=== PATIENT | female | born 1935 | race Caucasian/White ===

== ENCOUNTER 2023-11-01 13:30 | Emergency (ER) | payer MEDICARE ==
[~2023-11-01] VITALS: Ht 154.9 cm; Wt 73.5 kg
== END 2023-11-01 14:48 | disposition home or self-care (01) ==
LOC: ER 13:30
DX: S62.102D Fracture of unspecified carpal bone, left wrist, subsequent encounter for fracture with routine healing (principal)
CPT/HCPCS: 99282

== ENCOUNTER 2023-12-27 10:21 | Observation (INO) | payer MEDICARE, BC ==
[~2023-12-27] VITALS: Ht 170.2 cm; Wt 63.5 kg
[2023-12-27 11:13] LABS: BASOPHILS ABSOLUTE AUTO 0.05 K/mm3 (0.00-0.23); BASOPHILS PERCENT AUTO 0 % (0-2); EOSINOPHILS ABSOLUTE AUTO 0.19 K/mm3 (0.00-0.68); EOSINOPHILS PERCENT AUTO 2 % (0-6); Hemoglobin 12.6 g/dL (11.5-16.0); IMMATURE GRAN ABSOLUTE AUTO 0.09 K/mm3 (0.00-0.10); IMMATURE GRAN PERCENT AUTO 1 % (0-1); LYMPHOCYTES ABSOLUTE AUTO 2.68 K/mm3 (0.84-5.20); LYMPHOCYTES PERCENT AUTO 21 % (21-46); MONOCYTES PERCENT AUTO 7 % (4-13); Mean Corpuscular HGB Conc 32.3 g/dL (31.5-36.5); Mean Corpuscular Volume 93 fL (80-100); Mean Platelet Volume 9.4 fL (9.1-12.4); NEUTROPHILS ABSOLUTE AUTO 8.99 K/mm3 (1.96-9.15); NEUTROPHILS PERCENT AUTO 70 % (41-73); Platelet Count 300 K/mm3 (150-400); RDW Coefficient Variation 13.2 % (11.7-14.2); RDW Standard Deviation 44.6 fL (35.1-46.3)
[2023-12-27] MEDS ORDERED: Aspirin 325 MG Tab PO ONE (11:20)
[2023-12-27] MEDS ORDERED: NS 1,000 ML IV SCH (11:20)
[2023-12-27 14:09] LABS: Albumin, Blood 3.4 g/dL (3.4-5.0); Bilirubin, Total 0.4 mg/dL (0.1-1.0); Bun/Creatinine Ratio 21.5 (12.0-20.0); Calcium, Blood 10.3 mg/dL (8.5-10.1); Creatinine, Blood 1.21 mg/dL (0.40-1.00); Globulin, Blood 3.5 g/dL (2.2-4.0); Potassium, Blood 4.1 mmol/L (3.5-5.5); Total Protein, Blood 6.9 g/dL (6.4-8.2)
[2023-12-27] MEDS ORDERED: FLU VACC TS2024-25(6MOS UP)/PF 45 MCG/0.5 ML SYRINGE IM SCH (15:00)
[2023-12-27 16:05] LABS: CHOL/HDL RATIO 4.8; Cholesterol 183 mg/dL (50-200); HDL Cholesterol 38 mg/dL (>39); LDL/HDL RATIO Unable to Calculate; Low Density Lipoprotein Chol Unable to Calculate mg/dL (0-110); Triglycerides 506 mg/dL (30-160); Very Low Density Lipoprot Chol Unable to Calculate mg/dL (6-32)
[2023-12-27] MEDS ORDERED: Insulin Regular 100 UNIT/ML 10ML Vial SC SCH (16:30)
[2023-12-27] MEDS ORDERED: LEVSOD100 PO (17:49)
[2023-12-27] MEDS ORDERED: TRELEGY ELLIPT1 EAC1 INH (17:50)
[2023-12-27 18:47] VITALS: BP 170/55
[2023-12-27 19:52] VITALS: BP 164/59
--- NOTE | 2023-12-27 19:57 | NUR ---
ADMIT NOTE- PT ADMITTED THROUGH THE ED, ARRIVED AT 1838. PT ARRIVED WITH HER SON AND DAUGHTER IN [place]. PT WAS CHANGED INTO DRY ATTENDS, HER HOME CLOTHES WERE SOILED D/T A LEAKY PUREWICK CATH. PT WAS INSTRUCTED ON THE USE OF THE CALL LIGHT, TELE WAS REQUESTED, PLACED AND VERIFIED (SINUS AT 83). SPOKE TO DR SALDIVAR HER NOTE STATES THE PT IS DNR AND THE CHART SAYS FULL CODE. RECIEVED VERBAL ORDER TO CHANGE THE PT TO DNR. PT STATED DNR IS HER WISH. DNR VERIFIED WITH RN MAY AND DNR BAND PLACED. VITALS AND WEIGHT WERE CHECKED. PER THE PT FAMILY SHE USES 2.5L OF O2 AT NIGHT. PT IN BED, CALL LIGHT IN REACH NO S&S OF DISTRESS NOTED. NIGHT RN AWARE ADMIT ASSESSMENT NOT ABLE TO BE COMPLETED.
--- NOTE | 2023-12-28 04:39 | NUR ---
SHIFT SUMMARY PT ARRIVED DURING SHIFT CHANGE, QUALITY OFFICERDENISE CHARLTON COMPLETED THE ADMISSION ASSESSMENT. SKIN CHECK WITH THIS WORKFORCE MANAGEMENT COORDINATOR. PT HAS RIGHT LE WEAKNESS. ASSISTED TO BEDPAN D/T NON WEIGHT BEARING LE PER PT REPORT. PT IS A&O X4, ABLE TO MAKE HER NEEDS KNOWN. URGENCY AT TIMES TO VOID, UNABLE TO: BLADDER SCAN 500MLS, PT VOIDED 600MLS SOON AFTER. PT DENIES PAIN, SOB, N/V. PT IS ON 2.5 L (BASELINE) O2 VIA NASAL CANNULA, O2>95%. NO ACUTE EVENTS DURING THIS SHIFT. BED AT THE LOWEST POSITION, CALL LIGHT WITHIN REACH.
--- NOTE | 2023-12-28 04:59 | NUR ---
NEW T-ORDER FROM FOR FENTANYL IV 25-50MCG Q4 PRN FOR SEVERE PAIN. ENTERED TO [facility], SEE EMAR. NO ADDITIONAL NEW ORDERS AT THIS TIME.
[2023-12-28] MEDS ORDERED: FentaNYL Citrate 50 MCG/ML 2 ML Injection IV PRN (05:00)
[2023-12-28 05:02] LABS: BASOPHILS ABSOLUTE AUTO 0.05 K/mm3 (0.00-0.23); BASOPHILS PERCENT AUTO 0 % (0-2); EOSINOPHILS ABSOLUTE AUTO 0.35 K/mm3 (0.00-0.68); EOSINOPHILS PERCENT AUTO 3 % (0-6); Hematocrit 36.8 % (33.0-51.0); Hemoglobin 11.8 g/dL (11.5-16.0); IMMATURE GRAN ABSOLUTE AUTO 0.05 K/mm3 (0.00-0.10); IMMATURE GRAN PERCENT AUTO 0 % (0-1); LYMPHOCYTES ABSOLUTE AUTO 2.91 K/mm3 (0.84-5.20); LYMPHOCYTES PERCENT AUTO 26 % (21-46); MONOCYTES ABSOLUTE AUTO 0.93 K/mm3 (0.16-1.47); MONOCYTES PERCENT AUTO 8 % (4-13); Mean Corpuscular HGB 29.9 pg (26.0-34.0); Mean Corpuscular HGB Conc 32.1 g/dL (31.5-36.5); Mean Corpuscular Volume 93 fL (80-100); Mean Platelet Volume 9.5 fL (9.1-12.4); NEUTROPHILS ABSOLUTE AUTO 7.04 K/mm3 (1.96-9.15); NEUTROPHILS PERCENT AUTO 62 % (41-73); Platelet Count 273 K/mm3 (150-400); RDW Coefficient Variation 13.1 % (11.7-14.2); RDW Standard Deviation 44.8 fL (35.1-46.3); Red Blood Cell Count 3.94 M/mm3 (3.80-5.20); White Blood Cell Count 11.33 K/mm3 (4.00-11.30)
[2023-12-28 05:43] LABS: Bun/Creatinine Ratio 17.4 (12.0-20.0); Calcium, Blood 9.9 mg/dL (8.5-10.1); Creatinine, Blood 1.21 mg/dL (0.40-1.00); Potassium, Blood 4.1 mmol/L (3.5-5.5)
[2023-12-28] MEDS ORDERED: Pantoprazole Sodium 40 MG Tab PO SCH (06:00)
[2023-12-28 07:36] VITALS: BP 148/63
[2023-12-28] MEDS ORDERED: Aspirin 81 MG Chew PO SCH (09:00)
[2023-12-28] MEDS ORDERED: Enoxaparin 40 MG/0.4 ML SYR SC SCH (09:00)
[2023-12-28] MEDS ORDERED: Atorvastatin 40 MG Tab PO SCH (09:00)
[2023-12-28] MEDS ORDERED: Clopidogrel Bisulfate 75 MG Tab PO SCH (09:00)
[2023-12-28] MEDS ORDERED: METF500 PO ×2 (13:01→14:15)
[2023-12-28] MEDS ORDERED: AMLO10 PO (13:01)
[2023-12-28] MEDS ORDERED: LOVA40 PO (13:01)
[2023-12-28] MEDS ORDERED: LISI20 PO (13:02)
[2023-12-28] MEDS ORDERED: Furosemide20 MG PO (13:03)
[2023-12-28] MEDS ORDERED: C COMPLEX1000 M1 PO (13:05)
[2023-12-28] MEDS ORDERED: LEVSOD100 PO (13:05)
[2023-12-28] MEDS ORDERED: FISH OIL 1,2001 EAC4 PO (13:05)
[2023-12-28] MEDS ORDERED: VITAMIN B122500 MC1 PO (13:07)
[2023-12-28] MEDS ORDERED: ZINC7.5 MG PO (13:08)
[2023-12-28] MEDS ORDERED: Magnesium250 MG PO (13:09)
[2023-12-28] MEDS ORDERED: [UNRECOGNIZED DRUG - OTHER] PO (13:10)
[2023-12-28] MEDS ORDERED: LEVSOD75 PO (14:11)
[2023-12-28] MEDS ORDERED: ASPI81CH PO (14:13)
[2023-12-28] MEDS ORDERED: ATOR40TA PO (14:13)
[2023-12-28] MEDS ORDERED: CLOP75 PO (14:13)
[2023-12-28] MEDS ORDERED: PANT40 PO (14:14)
[2023-12-28] MEDS ORDERED: FENO48 PO (14:14)
[2023-12-28] MEDS ORDERED: GLIP5 PO (14:15)
--- NOTE | 2023-12-28 15:17 | NUR ---
DISCHARGE NOTE- PT DISCHARGED HOME WITH HOME HEALTH. MEDS FAXED TO [facility] PER PT AND FAMILY REQUEST. PT IV DC'D, TELE DC'D AND SHE WAS DRESSED FOR HOME, NOTE KEEPER ASSISTED HER TO TRANSFER TO THE FOR DISCHARGE. FAMILY CONVEYED CONCERN THEY COULD NOT CARE FOR HER, BECAUSE SHE COULD NOT MOVE HER RIGHT LEG. THIS RN DEMONSTRTATED TWO STAND PIVOT TRANSFERS WITH THE PT 1PA WITH THE GAIT BELT, PT DID WELL. FAMILY AGREED THEY CAN CARE FOR HER. PT WAS TAKEN VIA WC TO THE PT ENTRANCE WHERE HER FAMILY WAITED TO TAKE HER HOME. NO S&S OF DISTRESS NOTED AT THE TIME OF DISCHARGE.
== END 2023-12-28 14:56 | disposition home health service (06) ==
LOC: ER 10:21 → MEDS 10:22
PROVIDERS: Student in an Organized Health Care Education/Training Program; ADMIT Family Medicine
DX: I63.9 Cerebral infarction, unspecified (principal); E11.9 Type 2 diabetes mellitus without complications; I10 Essential (primary) hypertension; J44.9 Chronic obstructive pulmonary disease, unspecified; E78.1 Pure hyperglyceridemia; Z87.891 Personal history of nicotine dependence; Z66 Do not resuscitate
CPT/HCPCS: 36415; 70450; 70496; 70498; 70551; 71045; 80048; 80053; 80061; 82947; 83036; 84484; 85025; 93005; 93010; 96360-59; 96361; 96372; 96374; 97110; 97161; 97530; 99285-25; A9270; G0378; J1650; J1815; J3010; J7030; Q9967

== ENCOUNTER 2024-01-21 17:20 | Observation (INO) | payer MEDICARE, BC ==
[~2024-01-21] VITALS: Ht 152.4 cm; Wt 70.2 kg
[~2024-01-21 17:20] MED LIST: AMLO10 PO; ASPI81CH PO; ATOR40TA PO; C COMPLEX1000 M1 PO; CLOP75 PO; FENO48 PO; FISH OIL 1,2001 EAC4 PO; Furosemide20 MG PO; GLIP5 PO; LEVSOD100 PO; LEVSOD75 PO; LISI20 PO; LOVA40 PO; METF500 PO; Magnesium250 MG PO; PANT40 PO; TRELEGY ELLIPT1 EAC1 INH; VITAMIN B122500 MC1 PO; ZINC7.5 MG PO; [UNRECOGNIZED DRUG - OTHER] PO
[2024-01-21 17:53] LABS: BASOPHILS ABSOLUTE AUTO 0.06 K/mm3 (0.00-0.23); BASOPHILS PERCENT AUTO 1 % (0-2); EOSINOPHILS ABSOLUTE AUTO 0.19 K/mm3 (0.00-0.68); EOSINOPHILS PERCENT AUTO 2 % (0-6); Hemoglobin 11.8 g/dL (11.5-16.0); IMMATURE GRAN ABSOLUTE AUTO 0.06 K/mm3 (0.00-0.10); IMMATURE GRAN PERCENT AUTO 1 % (0-1); LYMPHOCYTES ABSOLUTE AUTO 1.42 K/mm3 (0.84-5.20); LYMPHOCYTES PERCENT AUTO 11 % (21-46); MONOCYTES ABSOLUTE AUTO 1.02 K/mm3 (0.16-1.47); MONOCYTES PERCENT AUTO 8 % (4-13); Mean Corpuscular HGB 29.9 pg (26.0-34.0); Mean Corpuscular HGB Conc 31.9 g/dL (31.5-36.5); Mean Corpuscular Volume 94 fL (80-100); NEUTROPHILS ABSOLUTE AUTO 9.66 K/mm3 (1.96-9.15); NEUTROPHILS PERCENT AUTO 78 % (41-73); Platelet Count 343 K/mm3 (150-400); RDW Standard Deviation 45.5 fL (35.1-46.3); Red Blood Cell Count 3.94 M/mm3 (3.80-5.20); White Blood Cell Count 12.41 K/mm3 (4.00-11.30)
[2024-01-21 18:04] LABS: Albumin, Blood 3.6 g/dL (3.4-5.0); Albumin/Globulin Ratio 0.9 (0.8-1.8); Bilirubin, Total 0.3 mg/dL (0.1-1.0); Calcium, Blood 10.9 mg/dL (8.5-10.1); Creatinine, Blood 1.5 mg/dL (0.40-1.00); Globulin, Blood 3.8 g/dL (2.2-4.0); Potassium, Blood 3.9 mmol/L (3.5-5.5); Total Protein, Blood 7.4 g/dL (6.4-8.2)
[2024-01-21 19:36] LABS: Source, Urine Clean Catch
[2024-01-21 19:40] LABS: Appearance, Urine Clear (Clear); Bilirubin, Urine Neg (Neg); Blood, Urine Neg (Neg); Glucose Qualitative, Urine Neg (Neg); Ketones, Urine Neg (Neg); Leukocyte Esterase, Urine Neg (Neg); Nitrite, Urine Neg (Neg); Protein, Urine Neg (Neg); Specific Gravity, Urine 1.005 (1.003-1.022); Urobilinogen, Urine NORM (Normal)
[2024-01-21] MEDS ORDERED: Mag Sulfate 1 GM/D5% 100ML 100 ML IV ONE (19:40)
[2024-01-21 19:42] LABS: Color, Urine Pale Yellow (P-Yellow)
[2024-01-21] MEDS ORDERED: Bisacodyl 10 MG Supp PR PRN (20:45)
[2024-01-21] MEDS ORDERED: Dextrose 10% 500 ML IV SCH ×2 (20:45→21:20)
[2024-01-21] MEDS ORDERED: FLU VACC TS2024-25(6MOS UP)/PF 45 MCG/0.5 ML SYRINGE IM ONE (20:50)
[2024-01-21] MEDS ORDERED: Ondansetron 4 MG TAB PO PRN (20:50)
[2024-01-21] MEDS ORDERED: Acetaminophen 325 MG TABLET PO PRN (20:50)
[2024-01-21] MEDS ORDERED: Magnesium Hydroxide Conc 10 ML UDC PO PRN (20:50)
[2024-01-21] MEDS ORDERED: Aspirin 81 MG Chew PO SCH (21:00)
[2024-01-21] MEDS ORDERED: Atorvastatin 40 MG Tab PO SCH (21:00)
[2024-01-21] MEDS ORDERED: Lisinopril 20 MG Tab PO SCH (21:00)
[2024-01-21] MEDS ORDERED: Sennosides 8.6 MG Tab PO SCH (21:00)
[2024-01-21] MEDS ORDERED: Docusate Sodium 100 MG Cap PO SCH (21:00)
[2024-01-21] MEDS ORDERED: Famotidine 20 MG Tab PO SCH (21:00)
[2024-01-21] MEDS ORDERED: Mometasone/Formoterol MDI 100/5 mcg 13 GM INH SCH (21:10)
[2024-01-21] MEDS ORDERED: Ipratropium Bromide INH 0.02% 0.5 mg/2.5ML Vial INH SCH (21:10)
[2024-01-21 22:24] VITALS: BP 149/51
[2024-01-21 23:49] VITALS: BP 121/51
[2024-01-22] VITALS (7 sets, daily range): BP systolic 120–145; BP diastolic 48–65
[2024-01-22] MEDS ORDERED: Glucagon 1 MG/KIT VIAL IV ONE (01:10)
[2024-01-22] MEDS ORDERED: Ipratropium Bromide INH 0.02% 0.5 mg/2.5ML Vial INH SCH (03:53)
[2024-01-22 05:53] LABS: Bun/Creatinine Ratio 21.5 (12.0-20.0); Creatinine, Blood 1.49 mg/dL (0.40-1.00); Magnesium, Blood 1.9 mg/dL (1.6-2.4); Potassium, Blood 3.7 mmol/L (3.5-5.5)
[2024-01-22] MEDS ORDERED: Pantoprazole Sodium 40 MG Tab PO SCH (06:00)
[2024-01-22] MEDS ORDERED: Levothyroxine Sodium 0.1 MG Tab PO SCH (06:00)
--- NOTE | 2024-01-22 06:44 | NUR ---
SHIFT SUMMARY PT ADMITTED FOR PERSISTENT HYOGLYCEMIA REQUIRING D10 GTT. 1 IVP GLUCAGON WAS REQUIRED OVERNIGHT DUE TO CONTINUOUS DOWNTREND OF BLOOD GLUCOSE LEVEL. D10 INFUSING AT 75ML/HR. Q1 HR BGL. FOR THE LAST 1 HRS, PATIENT'S BGL HAS BEEN 111. PT ALERT & ORIENTED. NO S/S DISTRESS AT THIS TIME.
[2024-01-22] MEDS ORDERED: Misc. Tablet PO SCH (09:00)
[2024-01-22] MEDS ORDERED: Fenofibrate 67 MG Cap PO SCH (09:00)
[2024-01-22] MEDS ORDERED: AmLODIPine Besylate 5 MG Tab PO SCH (09:00)
[2024-01-22] MEDS ORDERED: Furosemide 20 MG Tab PO SCH (09:00)
[2024-01-22] MEDS ORDERED: Clopidogrel Bisulfate 75 MG Tab PO SCH (09:00)
[2024-01-22] MEDS ORDERED: Cyanocobalamin 500 MCG Tab PO SCH (09:00)
[2024-01-22] MEDS ORDERED: D5W-1/2NS KCl 10mEq 1,000 ML IV SCH (09:30)
--- NOTE | 2024-01-22 09:47 | NUR ---
DNR BAND PLACED ON THE LEFT WRIST, VERIFIED WITH RONEL Islas RN.
[2024-01-22] MEDS ORDERED: [UNRECOGNIZED DRUG - MIXTURE] IV SCH (10:00)
--- NOTE | 2024-01-22 11:33 | NUR ---
AT THE BEGINING OF THE SHIFT THE PT WAS ON D10% AT 75 ML/HR. W/ Q1 CBG CHECK. THE PT'S CBG 130+. DR. BARRIOS CALL AND SWTCHED THE PT TO KCL W/ D5% AND 1/2NS AT 50CC/HR. THE PT'S CBG CONTINUED TO ELEVATE >180. HE WANTED THE FLUIDS PAUSED NOT D/C'D. THEY WERE PAUSED ABOUT 1130. HE STATED THAT IF THE BLOOD SUGARS ARE >100 X3 WE CAN SWITCH CHECKS TO Q2. IF THEY REMAIN >100 X3 AT Q2, THE PT CAN SWITCH TO ACHS. SEE NOTES FOR UPDATES.
[2024-01-22] MEDS ORDERED: GLIP5 PO (14:20)
--- NOTE | 2024-01-22 15:46 | NUR ---
MED REC COMPLETED WITH THE PT'S SON AND DAUGHTER N LAW.
--- NOTE | 2024-01-22 17:41 | NUR ---
SHIFT SUMMARY THE PT IS A&OX3-4, AND A 1P STAND AND PIVOT WITH FWW AND GAITBELT TO THE CHAIR OR BEDSIDE CAMMODE. THE PT IS ON RA W/ SP02 >93%, AND SHE DENIES SOB. ON TELE SHE IS SR, AND BP STABLE. THE PT DENIES ANY ANGINA OR CHEST PRESSURE. SHE HAS BEEN UP TO THE CHAIR TWICE TODAY AND TOLERATED IT WELL. THE PT HAD A PURWICK IN D/T REPORTED INCONTINENCE. THE PT S FAMILY REPORTS THE PT HAS ONLY HAS OCCASIONAL INCONTINENCE AT HOME. PURWICK PULLED TO ENCOURAGE GETTING OOB FOR TOILETING. PT REPLIED WITH I AM GOING TO HAVE TO TELL MY FAMILY THEY ARE A BUNCH OF BLABBER MOUTHS . SHE ACCEPTED GETTING OOB MORE. SHE HAS HAD AN ADEQUATE DIET AND HAS BEEN OFF OF FLUIDS MAJORITY OF THE DAY. SHE IS CURRENTLY A Q2 CBG, BUT IT WILL CHANGE TO ACHS IF THE PT S CBG CONTINUES TO BE >100 FOR A TOTAL OF THREE TIMES AT THE Q2 CHECK. NO ACUTE EVENTS THIS SHIFT. BED IN LOW, CALL LIGHT IN REACH. SEE NOTES FOR UPDATES.
[2024-01-23 03:38] VITALS: BP 123/48
[2024-01-23 04:19] LABS: BASOPHILS ABSOLUTE AUTO 0.06 K/mm3 (0.00-0.23); BASOPHILS PERCENT AUTO 1 % (0-2); EOSINOPHILS ABSOLUTE AUTO 0.38 K/mm3 (0.00-0.68); EOSINOPHILS PERCENT AUTO 4 % (0-6); Hematocrit 34.5 % (33.0-51.0); Hemoglobin 11.1 g/dL (11.5-16.0); IMMATURE GRAN ABSOLUTE AUTO 0.03 K/mm3 (0.00-0.10); IMMATURE GRAN PERCENT AUTO 0 % (0-1); LYMPHOCYTES ABSOLUTE AUTO 1.79 K/mm3 (0.84-5.20); LYMPHOCYTES PERCENT AUTO 19 % (21-46); MONOCYTES ABSOLUTE AUTO 0.98 K/mm3 (0.16-1.47); MONOCYTES PERCENT AUTO 11 % (4-13); Mean Corpuscular HGB 29.5 pg (26.0-34.0); Mean Corpuscular HGB Conc 32.2 g/dL (31.5-36.5); Mean Corpuscular Volume 92 fL (80-100); Mean Platelet Volume 9.4 fL (9.1-12.4); NEUTROPHILS ABSOLUTE AUTO 5.97 K/mm3 (1.96-9.15); NEUTROPHILS PERCENT AUTO 65 % (41-73); Platelet Count 335 K/mm3 (150-400); RDW Coefficient Variation 13.5 % (11.7-14.2); RDW Standard Deviation 45.5 fL (35.1-46.3); Red Blood Cell Count 3.76 M/mm3 (3.80-5.20); White Blood Cell Count 9.21 K/mm3 (4.00-11.30)
[2024-01-23 04:35] LABS: Albumin, Blood 3.2 g/dL (3.4-5.0); Bilirubin, Total 0.3 mg/dL (0.1-1.0); Bun/Creatinine Ratio 17.2 (12.0-20.0); Calcium, Blood 10.4 mg/dL (8.5-10.1); Creatinine, Blood 2.09 mg/dL (0.40-1.00); Globulin, Blood 3.3 g/dL (2.2-4.0); Potassium, Blood 4.1 mmol/L (3.5-5.5); Total Protein, Blood 6.5 g/dL (6.4-8.2)
--- NOTE | 2024-01-23 06:14 | NUR ---
SHIFT SUMMARY PT ALERT AND ORIENTED X4, FORGETFUL AT TIMES,LYTTON WITH HEARING AIDES FOLLOWS COMMANDS,ABLE TO MAKE NEEDS KNOWN, SR 60-80S, SBP 120-140S, TMAX 99.7F, MEDICATED WITH TYLENOL PO X1 EFFECTIVE, NOTED RIGHT SIDED WEAKNESS PT INCONTINENT X2, PUREWICK PLACED PER PT REQUEST AFTER COMPLETE BED CHANGE, PT TOLERATED WELL, SCHEDULED MEDS GIVEN PO WHOLE WITH APPLESAUCE, PT SWALLOWED WITHOUT DIFFICULTY, CBG 246 AT 2037, IVF REMAINS OFF, PIV X2 TO RIGHT AND LEFT FOREARM PATENT AND CLAMPED, PT DENIES C/O PAIN OR NEEDS, TURNED AND REPOSTIONED EVERY 2 HOURS, SIDE RAILS UP X2 CALL LIGHT IN REACH
[2024-01-23 08:07] VITALS: BP 145/72
[2024-01-23] MEDS ORDERED: Enoxaparin 30 MG/0.3 ML SYR SC ONE (09:50)
[2024-01-23] MEDS ORDERED: LISI5 PO (10:01)
[2024-01-23] MEDS ORDERED: HYDR10 PO (10:02)
--- NOTE | 2024-01-23 11:06 | NUR ---
ASSUMING CARE ASSUMED CARE OF THIS PATIENT AT 0730. PATIENT A+O X4, ABLE TO MAKE NEEDS KNOWN. CALL LIGHT IN REACH. ADULT SON CALLED FOR AN UPDATE, INFORMED HIM SHE HAS DISCHARGE PAPERWORK READY, HE STATED HE WILL BE IN AT AROUND 1300 TO PICK HER UP.
--- NOTE | 2024-01-23 11:32 | NUR ---
nurse note PHONE CALL PLACED TO DOCTOR ABOUT BLOOD SUGAR OF 295. DOCTOR TO PLACE ORDERS, AND UPDATE DISCHARGE PLAN TO REFLECT NEW MEDICATIONS.
[2024-01-23 11:58] VITALS: BP 135/60
[2024-01-23] MEDS ORDERED: Insulin Glargine-Yfgn 100 Unit/mL 3 ML SYR SC ONE (12:00)
[2024-01-23] MEDS ORDERED: BASAGLAR K100 UNIT/1 SC (12:11)
--- NOTE | 2024-01-23 13:14 | NUR ---
NURSE NOTE PATIENT DISCHARGE WENT OVER WITH PATIENT AND FAMILY. HARD SCRIPT PROVIDED, BENTLEY PLACED IN CHART, DISCHARGE PACKET GIVEN TO FAMILY. PERSONAL BELONGINGS GATHERED AND SENT WITH FAMILY. RESIDENTIAL CARPET INSTALLER TOOK PATIENT OUT IN A WHEEL CHAIR.
[2024-01-24] MEDS ORDERED: Pantoprazole Sodium 40 MG Tab PO SCH (06:00)
== END 2024-01-23 13:24 | disposition home or self-care (01) ==
LOC: ER 17:20 → PCU 17:21
PROVIDERS: Hospitalist; Student in an Organized Health Care Education/Training Program; ADMIT Hospitalist
DX: E11.649 Type 2 diabetes mellitus with hypoglycemia without coma (principal); E11.22 Type 2 diabetes mellitus with diabetic chronic kidney disease; I12.9 Hypertensive chronic kidney disease with stage 1 through stage 4 chronic kidney disease, or unspecified chronic kidney disease; N18.32 Chronic kidney disease, stage 3b; N17.9 Acute kidney failure, unspecified; E03.9 Hypothyroidism, unspecified; J44.9 Chronic obstructive pulmonary disease, unspecified; E78.00 Pure hypercholesterolemia, unspecified; Z66 Do not resuscitate; Z79.84 Long term (current) use of oral hypoglycemic drugs; Z79.899 Other long term (current) drug therapy; Z86.73 Personal history of transient ischemic attack (TIA), and cerebral infarction without residual deficits; Z87.891 Personal history of nicotine dependence
CPT/HCPCS: 36415; 70450; 80048; 80053; 81003; 82306; 82947; 83735; 83970; 85025; 92526; 92610; 93005; 93010; 94640; 94664; 94760; 94762; 96365; 96366; 96367; 96372; 97110; 97116; 97162; 97165; 97535; 99285-25; A9270; G0378; J1610; J1650; J1815; J3475; J3480; J7042

== ENCOUNTER → 2024-06-26 | Outpatient (CLI) | payer MEDICARE, BC ==
[~2024-06-26] MED LIST changes: +BASAGLAR K100 UNIT/1 SC; +HYDR10 PO; +LISI5 PO
[2024-07-03 18:54] LABS: ALBUMIN %,URINE 66.5 %; ALPHA-1 %,URINE 3.4 %; ALPHA-2 %,URINE 8.2 %; BETA GLOBULIN %,URINE 2.3 %; GAMMA GLOBULIN %,URINE 19.6 %; HOURS COLLECTED Random hr; TOTAL VOLUME Random mL
== END ==
LOC: LAB SHORT 08:22 → LAB 08:22 → LAB FUT 06-26 12:50
PROVIDERS: Internal Medicine Nephrology
DX: N18.30 Chronic kidney disease, stage 3 unspecified (principal); D63.1 Anemia in chronic kidney disease; N25.81 Secondary hyperparathyroidism of renal origin; E55.9 Vitamin D deficiency, unspecified; E78.00 Pure hypercholesterolemia, unspecified; R76.9 Abnormal immunological finding in serum, unspecified; R94.5 Abnormal results of liver function studies; G60.9 Hereditary and idiopathic neuropathy, unspecified; D51.8 Other vitamin B12 deficiency anemias; D52.8 Other folate deficiency anemias
CPT/HCPCS: 84156; 84166; 86335

== ENCOUNTER → 2024-06-28 | Outpatient (CLI) | payer MEDICARE, BC ==
[2024-06-28 15:25] LABS: Creatinine Urine 78.7 mg/dL (27.00-270.00); Microalbumin, Urine Quant. 47.6 mg/L (0.000-20.000); Protein, Urine Quantitative 19.7 mg/dL (0.0-11.9)
== END | disposition home or self-care (01) ==
LOC: LAB 06:50 → LAB SHORT 06:50
PROVIDERS: Internal Medicine Nephrology
DX: N18.30 Chronic kidney disease, stage 3 unspecified (principal); D63.1 Anemia in chronic kidney disease; D52.8 Other folate deficiency anemias; D51.8 Other vitamin B12 deficiency anemias; D50.9 Iron deficiency anemia, unspecified; E78.00 Pure hypercholesterolemia, unspecified; E55.9 Vitamin D deficiency, unspecified; N25.81 Secondary hyperparathyroidism of renal origin; R76.9 Abnormal immunological finding in serum, unspecified; R94.5 Abnormal results of liver function studies; R94.6 Abnormal results of thyroid function studies
CPT/HCPCS: 81050; 82043; 82570; 84156

== ENCOUNTER 2024-08-20 07:48 | Day surgery (SDC) | payer MEDICARE, BC ==
[~2024-08-20] VITALS: Ht 152.4 cm; Wt 68.7 kg
[~2024-08-20 07:48] MED LIST changes: +Balanced Salt Epinephrine Irrigation Solution 500 mL IR SCH; +Moxifloxacin HCL 0.5 MG/0.1 ML 0.4MLSYR RIGHTEYE SCH; +Ondansetron 4 MG SoluTab MM PRN; +PHENYLEPHRINE\\TROPICAMIDE\\TETRACAINE OPHTHALMIC DILATING SOLN RIGHTEYE PRN; +Povidone-Iodine 450 DROP/30 ML Solution ONE; +Povidone-Iodine 450 DROP/30 ML Solution RIGHTEYE SCH; +Tetracaine HCl/Pf 0.5% Opth Soln 4 ml ONE; +diazePAM 5 MG,diazePAM 2 MG PO SCH
--- NOTE | 2024-08-20 08:54 | NUR ---
08/20/24 0854 Ming Garcias CALL LIGHT WITHIN REACH. PT ON CONTINOUS PULSE OXIMETER.
--- NOTE | 2024-08-20 09:28 | NUR ---
08/20/24 0928 Fernanda Honeycutt 0919 BP 132/50, O2 AT 97% HR 66, RESP 16
--- NOTE | 2024-08-20 10:02 | NUR ---
08/20/24 [facility] Deandre العلي PT DENIES PAIN AND NAUSEA AT THIS TIME. PT AGREEABLE TO D/C HOME.
== END 2024-08-20 10:01 | disposition home or self-care (01) ==
LOC: ORSCSDS 07:48
PROVIDERS: Student in an Organized Health Care Education/Training Program
PROC: 08RJ3JZ Replacement of Right Lens with Synthetic Substitute, Percutaneous Approach (ICD-10-PCS; principal; 2024-08-20 09:30)
DX: E11.36 Type 2 diabetes mellitus with diabetic cataract (principal); H25.813 Combined forms of age-related cataract, bilateral; H04.123 Dry eye syndrome of bilateral lacrimal glands; Z86.73 Personal history of transient ischemic attack (TIA), and cerebral infarction without residual deficits; I10 Essential (primary) hypertension; J44.9 Chronic obstructive pulmonary disease, unspecified; Z79.82 Long term (current) use of aspirin; Z79.899 Other long term (current) drug therapy
CPT/HCPCS: A9270; V2632

== ENCOUNTER 2024-08-28 09:11 | Day surgery (SDC) | payer MEDICARE, BC ==
[~2024-08-28] VITALS: Ht 152.4 cm; Wt 68.3 kg
[~2024-08-28 09:11] MED LIST changes: +Moxifloxacin HCL 0.5 MG/0.1 ML 0.4MLSYR LEFTEYE SCH; -Moxifloxacin HCL 0.5 MG/0.1 ML 0.4MLSYR RIGHTEYE SCH; +PHENYLEPHRINE\\TROPICAMIDE\\TETRACAINE OPHTHALMIC DILATING SOLN LEFTEYE PRN; -PHENYLEPHRINE\\TROPICAMIDE\\TETRACAINE OPHTHALMIC DILATING SOLN RIGHTEYE PRN; +Povidone-Iodine 450 DROP/30 ML Solution LEFTEYE SCH; -Povidone-Iodine 450 DROP/30 ML Solution RIGHTEYE SCH
--- NOTE | 2024-08-28 10:10 | NUR ---
08/28/24 1010 Gianna Webb PT REPORTS ANXIETY LEVEL 4/10 PRIOR TO ADMINISTRATION OF VALIUM 7MG PO @ 1009.
--- NOTE | 2024-08-28 10:51 | NUR ---
08/28/24 1051 Gema Deal HR: 67 RR: 16 BP: 139/56 SPO2: 96% ON BLOW BY 02
== END 2024-08-28 11:23 | disposition home or self-care (01) ==
LOC: ORSCSDS 09:11
PROVIDERS: Student in an Organized Health Care Education/Training Program
PROC: 08RK3JZ Replacement of Left Lens with Synthetic Substitute, Percutaneous Approach (ICD-10-PCS; principal; 2024-08-28 11:00)
DX: E11.36 Type 2 diabetes mellitus with diabetic cataract (principal); H25.812 Combined forms of age-related cataract, left eye; H04.123 Dry eye syndrome of bilateral lacrimal glands; Z96.1 Presence of intraocular lens; J44.9 Chronic obstructive pulmonary disease, unspecified; I10 Essential (primary) hypertension; Z86.73 Personal history of transient ischemic attack (TIA), and cerebral infarction without residual deficits; Z79.82 Long term (current) use of aspirin; Z79.4 Long term (current) use of insulin; Z79.02 Long term (current) use of antithrombotics/antiplatelets; Z79.899 Other long term (current) drug therapy
CPT/HCPCS: A9270; V2632